=== PATIENT | male | born 2000 | race Caucasian/White ===

== ENCOUNTER 2019-03-07 15:54 | Outpatient (CLI) | payer OTHER ==
--- NOTE | 2019-03-08 14:41 | Ultrasound Report ---
Reason: GROIN PAIN, LEFT Procedure Date: 03/07/2019 Accession Number: [id number] / [id number] Procedure: US - Pelvic Limited or F/U CPT Code: FULL RESULT: EXAM: INGUINAL ULTRASOUND EXAM DATE: 03/07/2019 04:25 PM. CLINICAL HISTORY: Left groin pain for 1 month. COMPARISON: None. TECHNIQUE: Real-time sonographic imaging of the inguinal canals and vascular structures, including color-flow, was performed by the lime kiln worker. Multiple product sales representative static images were saved for review. FINDINGS: Hernia: None identified with or without Valsalva. Soft Tissues: Normal. No fluid collections or adenopathy. Other: Normal size inguinal lymph nodes measure up to 4 mm short axis. IMPRESSION: No inguinal hernia, mass or adenopathy evident. [facility]
== END 2019-03-07 15:55 | disposition home or self-care (01) ==
LOC: DI 15:54
PROVIDERS: ATTEND Physician Assistant
DX: R10.32 Left lower quadrant pain (principal)
CPT/HCPCS: 76857